=== PATIENT | female | born 1990 | race Caucasian/White ===

== ENCOUNTER 2016-12-09 16:47 | Emergency (ER) | payer OTHER ==
[~2016-12-09] VITALS: Ht 154.9 cm; Wt 90.7 kg
[~2016-12-09 16:47] MED LIST: ALLERGY RELIEF10 M1; ATARAX25 MG PO; ATIVAN1 MG PO; AUGMENTIN 875-875 MG PO; BACTRIM DS 8001 TA1 PO; CEPHALEXIN500 M1 PO; CIPRO500 MG PO; CLARITIN10 MG PO; COLACE100 MG; CORTISPORIN SUS10 ML OT; DAYPRO600 M1 PO; DIFLUCAN150 MG PO; FLEXERIL5 MG PO; MACROBID100 M1 PO; MOTRIN800 MG PO; Motrin,Rufen800 MG PO; NAFTIN PO; NAPROSYN500 MG PO; NORCO 5-325 TA1 EACH PO; OCUFLOX 0.3% 5 M5 ML OPH; PAXIL10 MG PO; PERCOCET 325 MG1 TA2 PO; PREDNICOT10 MG PO; PREDNICOT20 MG PO; PREDNISONE10 MG PO; PROCTOCREAM-HC2.5% TP; ROBAXIN750 MG PO; TYLENOL SO500 MG/15 PO; ULTRAM50 MG PO; VIBRAMYCIN100 MG PO; ZITHROMAX Z PA250 MG PO; ZITHROMAX Z-PA250 MG PO
[2016-12-09 17:13] LABS: BILIRUBIN NEGATIVE (NEGATIVE); BLOOD 3+ (NEGATIVE); CLARITY SL CLOUDY (CLEAR); COLOR YELLOW (YELLOW); GLUCOSE NEGATIVE (NEGATIVE); KETONE NEGATIVE (NEGATIVE); LEUKO ESTERASE 3+ (NEGATIVE); NITRITE NEGATIVE (NEGATIVE); PROTEIN NEGATIVE (NEGATIVE); UROBILINOGEN 0.2 E.U./dl (0.2-1.0)
[2016-12-09 17:24] LABS: BASO # 0.1 10*3/uL (0.0-0.1); BASO % 0.5 % (0.0-1.0); EOS # 0.2 10*3/uL (0.0-0.4); EOS % 1.5 % (1.0-4.0); HEMATOCRIT 36.7 % (37.0-47.0); HEMOGLOBIN 11.8 g/dl (12.0-16.0); LYMPH # 1.9 10*3/uL (1.3-4.4); LYMPH % 15.6 % (27.0-41.0); MEAN CELL VOLUME 91.5 fl (81.0-99.0); MEAN CORPUSCULAR HGB 29.4 pg (27.0-31.0); MEAN CORPUSCULAR HGB CONC 32.2 g/dl (33.0-37.0); MEAN PLATELET VOLUME 10.3 fl (9.6-12.3); MONO # 0.7 10*3/uL (0.1-1.0); MONO % 5.5 % (3.0-9.0); NEUT # 9.4 10*3/uL (2.3-7.9); NEUT % 76.6 % (47.0-73.0); PLATELET COUNT AUTOMATED 252 10*3/uL (130-400); RED BLOOD COUNT 4.01 10*6/uL (4.10-5.10); RED CELL DISTRI WIDTH 13.2 % (0-14.5); WHITE BLOOD COUNT 12.3 10*3/uL (4.8-10.8)
[2016-12-09 17:27] LABS: URINE REFLEX COMMENT YES (NO)
[2016-12-09 17:28] LABS: BACTERIA 1+
[2016-12-09 17:30] LABS: EPITHELIAL CELLS 31-40; RBC 41-50 rbc/hpf (0-2); WBC 31-40 wbc/hpf (0-5)
[2016-12-09 17:43] LABS: ALBUMIN 3.2 gm/dl (3.1-4.5); ALKALINE PHOSPHATASE 74 U/L (45-117); BILIRUBIN, TOTAL 0.2 mg/dl (0.2-1.0); BUN 10 mg/dl (7-24); CARBON DIOXIDE 24 mmol/L (21-32); CHLORIDE 108 mmol/L (98-107); EST GLOM FILT AFRICAN AMERICAN > 60 ml/min; GLUCOSE 96 mg/dL (65-99); POTASSIUM 4.1 mmol/L (3.5-5.1); SGOT/AST 15 IU/L (3-35); SGPT/ALT 20 U/L (12-78); SODIUM 138 mmol/L (136-145); TOTAL PROTEIN 7.3 gm/dL (6.4-8.2)
[2016-12-09] MEDS ORDERED: AMINOPHYLLIN200 MG PO (18:50)
== END 2016-12-09 18:56 | disposition home or self-care (01) ==
LOC: ED 16:47
PROVIDERS: Physician Assistant
DX: O23.41 Unspecified infection of urinary tract in pregnancy, first trimester (principal); O99.331 Smoking (tobacco) complicating pregnancy, first trimester; F17.200 Nicotine dependence, unspecified, uncomplicated; Z91.040 Latex allergy status; Z88.8 Allergy status to other drugs, medicaments and biological substances; Z3A.01 Less than 8 weeks gestation of pregnancy

== ENCOUNTER 2016-12-20 16:20 | Emergency (ER) | payer OTHER ==
[~2016-12-20] VITALS: Wt 95.7 kg
[~2016-12-20 16:20] MED LIST changes: +AMINOPHYLLIN200 MG PO
== END 2016-12-20 16:57 | disposition home or self-care (01) ==
LOC: ED 16:20
DX: O20.0 Threatened abortion (principal); M79.672 Pain in left foot; K59.00 Constipation, unspecified; R42 Dizziness and giddiness; R11.0 Nausea; Z88.8 Allergy status to other drugs, medicaments and biological substances; Z91.040 Latex allergy status; F17.200 Nicotine dependence, unspecified, uncomplicated

== ENCOUNTER → 2016-12-25 | Outpatient (CLI) | payer OTHER | END | disposition home or self-care (01) | LOC: US 15:59 | DX: O20.0 Threatened abortion (principal); Z3A.01 Less than 8 weeks gestation of pregnancy ==

== ENCOUNTER 2017-07-26 10:26 | Emergency (ER) | payer OTHER ==
[~2017-07-26] VITALS: Ht 157.4 cm; Wt 97.1 kg
[2017-07-26] MEDS ORDERED: AMOXICILLIN500 M2 PO (12:27)
[2017-07-26] MEDS ORDERED: PROVENTIL HFA6.7 GM INH (12:27)
== END 2017-07-26 12:42 | disposition home or self-care (01) ==
LOC: ED 10:26
DX: O26.892 Other specified pregnancy related conditions, second trimester (principal); J32.9 Chronic sinusitis, unspecified; O99.333 Smoking (tobacco) complicating pregnancy, third trimester; F17.200 Nicotine dependence, unspecified, uncomplicated; Z88.8 Allergy status to other drugs, medicaments and biological substances; Z79.899 Other long term (current) drug therapy; Z91.040 Latex allergy status; Z3A.23 23 weeks gestation of pregnancy

== ENCOUNTER 2017-10-02 09:40 | Emergency (ER) | payer OTHER ==
[~2017-10-02] VITALS: Ht 157.4 cm; Wt 108.0 kg
[~2017-10-02 09:40] MED LIST changes: +AMOXICILLIN500 M2 PO; +PROVENTIL HFA6.7 GM INH
[2017-10-02 10:10] LABS: BILIRUBIN NEGATIVE (NEGATIVE); BLOOD NEGATIVE (NEGATIVE); CLARITY CLEAR (CLEAR); COLOR YELLOW (YELLOW); GLUCOSE NEGATIVE (NEGATIVE); KETONE NEGATIVE (NEGATIVE); LEUKO ESTERASE TRACE (NEGATIVE); NITRITE NEGATIVE (NEGATIVE); PH 6.5 (5.0-9.0); SPECIFIC GRAVITY <= 1.005 (1.005-1.030); UROBILINOGEN 0.2 E.U./dl (0.2-1.0)
[2017-10-02 10:17] LABS: BASO % 0.2 % (0.0-1.0); EOS # 0.2 10*3/uL (0.0-0.4); EOS % 1.2 % (1.0-4.0); HEMATOCRIT 33.2 % (37.0-47.0); HEMOGLOBIN 10.6 g/dl (12.0-16.0); LYMPH # 1.6 10*3/uL (1.3-4.4); LYMPH % 9.3 % (27.0-41.0); MEAN CELL VOLUME 90.2 fl (81.0-99.0); MEAN CORPUSCULAR HGB 28.8 pg (27.0-31.0); MEAN CORPUSCULAR HGB CONC 31.9 g/dl (33.0-37.0); MONO # 0.9 10*3/uL (0.1-1.0); NEUT # 14.3 10*3/uL (2.3-7.9); NEUT % 83.7 % (47.0-73.0); PLATELET COUNT AUTOMATED 240 10*3/uL (130-400); RED BLOOD COUNT 3.68 10*6/uL (4.10-5.10); RED CELL DISTRI WIDTH 14.2 % (0-14.5); WHITE BLOOD COUNT 17.1 10*3/uL (4.8-10.8)
[2017-10-02 10:23] LABS: BACTERIA TRACE
[2017-10-02 10:24] LABS: YEAST 2+
[2017-10-02 10:33] LABS: ALBUMIN 2.6 gm/dl (3.1-4.5); ALKALINE PHOSPHATASE 79 U/L (45-117); BUN 8 mg/dl (7-24); CHLORIDE 106 mmol/L (98-107); CREATININE 0.54 mg/dL (0.55-1.02); POTASSIUM 3.6 mmol/L (3.5-5.1); SGOT/AST 17 IU/L (3-35); SGPT/ALT 26 U/L (12-78); SODIUM 136 mmol/L (136-145); TOTAL PROTEIN 6.7 gm/dL (6.4-8.2)
== END 2017-10-02 11:53 | disposition short-term general hospital (02) ==
LOC: ED 09:40
PROVIDERS: Emergency Medicine
DX: O23.43 Unspecified infection of urinary tract in pregnancy, third trimester (principal); R30.0 Dysuria; R35.0 Frequency of micturition; O26.893 Other specified pregnancy related conditions, third trimester; R10.31 Right lower quadrant pain; O99.333 Smoking (tobacco) complicating pregnancy, third trimester; F17.200 Nicotine dependence, unspecified, uncomplicated; Z98.890 Other specified postprocedural states; Z91.040 Latex allergy status; Z3A.31 31 weeks gestation of pregnancy; Z88.6 Allergy status to analgesic agent

== ENCOUNTER 2019-08-01 12:05 | Emergency (ER) | payer OTHER ==
[~2019-08-01] VITALS: Ht 157.4 cm; Wt 95.3 kg
[2019-08-01] MEDS ORDERED: AMOXICILLIN500 M2 PO (14:18)
[2019-08-01] MEDS ORDERED: TESSALON PERLE100 M1 PO (14:22)
== END 2019-08-01 14:18 | disposition home or self-care (01) ==
LOC: ED 12:05
DX: J20.8 Acute bronchitis due to other specified organisms (principal); J45.909 Unspecified asthma, uncomplicated; F17.200 Nicotine dependence, unspecified, uncomplicated; Z91.040 Latex allergy status; Z88.8 Allergy status to other drugs, medicaments and biological substances; Z98.890 Other specified postprocedural states

== ENCOUNTER → 2020-01-19 | Outpatient (CLI) | payer OTHER ==
[~2020-01-19] MED LIST changes: +PENICILLIN VK500 MG PO; +TESSALON PERLE100 M1 PO
== END | disposition home or self-care (01) ==
LOC: COVID19 00:04
PROVIDERS: ATTEND Dentist General Practice
DX: Z01.812 Encounter for preprocedural laboratory examination (principal); Z20.828 Contact with and (suspected) exposure to other viral communicable diseases

== ENCOUNTER → 2020-01-24 | Day surgery (SDC) | payer OTHER ==
[~2020-01-24] VITALS: Ht 157.4 cm; Wt 94.3 kg
[2020-01-24 08:00] VITALS: BP 135/71
[2020-01-24 09:55] VITALS: BP 129/65
[2020-01-24 10:10] VITALS: BP 130/75
[2020-01-24 10:25] VITALS: BP 116/42
[2020-01-24 10:40] VITALS: BP 126/81
[2020-01-24 10:55] VITALS: BP 132/75
== END | disposition home or self-care (01) ==
LOC: SDC 01-12 13:15
PROVIDERS: ATTEND Dentist General Practice
DX: K02.9 Dental caries, unspecified (principal); F43.0 Acute stress reaction; J45.909 Unspecified asthma, uncomplicated; Z87.891 Personal history of nicotine dependence; Z98.890 Other specified postprocedural states; Z79.899 Other long term (current) drug therapy; Z83.3 Family history of diabetes mellitus

== ENCOUNTER 2020-12-22 11:12 | Emergency (ER) | payer OTHER ==
[~2020-12-22] VITALS: Ht 157.4 cm; Wt 89.4 kg
[2020-12-22 11:44] LABS: BILIRUBIN Negative (Negative); BLOOD Negative (Negative); CLARITY Cloudy (Clear); COLOR Yellow (Yellow); GLUCOSE Negative (Negative); KETONE Trace (Negative); LEUKO ESTERASE Trace (Negative); NITRITE Negative (Negative); PH 6.5 (4.5-8.0); SPECIFIC GRAVITY >= 1.030 (1.001-1.030)
[2020-12-22 11:58] LABS: BACTERIA 2+; RBC 0-2 rbc/hpf (0-2); WBC 0-2 wbc/hpf (0-5)
[2020-12-22 11:59] LABS: BASO # 0.1 10*3/uL (0.0-0.1); BASO % 0.5 % (0.0-1.0); EOS # 0.1 10*3/uL (0.0-0.4); EOS % 0.5 % (1.0-4.0); HEMATOCRIT 40.6 % (37.0-47.0); LYMPH # 1.4 10*3/uL (1.3-4.4); LYMPH % 15.2 % (27.0-41.0); MEAN CELL VOLUME 92.7 fl (81.0-99.0); MEAN CORPUSCULAR HGB 29.5 pg (27.0-31.0); MEAN CORPUSCULAR HGB CONC 31.8 g/dl (33.0-37.0); MEAN PLATELET VOLUME 9.9 fl (9.6-12.3); MONO # 0.5 10*3/uL (0.1-1.0); MONO % 5.3 % (3.0-9.0); NEUT # 7.2 10*3/uL (2.3-7.9); NEUT % 78.1 % (47.0-73.0); PLATELET COUNT AUTOMATED 309 10*3/uL (130-400); RED BLOOD COUNT 4.38 10*6/uL (4.10-5.10); RED CELL DISTRI WIDTH 13.4 % (0-14.5); WHITE BLOOD COUNT 9.3 10*3/uL (4.8-10.8)
[2020-12-22 12:01] LABS: URINE AMPHETAMINES < 1000 (1000ng/ml); URINE BARBITURATES < 200 (200ng/ml); URINE BENZODIAZEPINES < 200 (200ng/ml); URINE CANNABINOIDS (THC) > 50 (50ng/ml); URINE COCAINE < 300 (300ng/ml); URINE METHADONE < 300 (300ng/ml); URINE OPIATES < 300 (300ng/ml)
[2020-12-22 12:09] LABS: URINE PHENCYCLIDINE < 25 (25ng/ml)
[2020-12-22 12:14] LABS: ALKALINE PHOSPHATASE 89 U/L (45-117); BUN 15 mg/dl (7-24); CHLORIDE 109 mmol/L (98-107); CREATININE 0.92 mg/dL (0.55-1.02); LIPASE 88 U/L (73-393); POTASSIUM 3.8 mmol/L (3.5-5.1); SGOT/AST 13 IU/L (3-35); SGPT/ALT 22 U/L (12-78); SODIUM 139 mmol/L (136-145); TOTAL PROTEIN 8.1 gm/dL (6.4-8.2)
[2020-12-22 12:17] LABS: ETHYL ALCOHOL < 3.0 mg/dl (<3)
== END 2020-12-22 15:42 | disposition left against medical advice (07) ==
LOC: ED 11:12
PROVIDERS: Emergency Medicine
DX: G89.29 Other chronic pain (principal); R10.9 Unspecified abdominal pain; R10.2 Pelvic and perineal pain; Z91.040 Latex allergy status; Z88.8 Allergy status to other drugs, medicaments and biological substances; Z79.899 Other long term (current) drug therapy